=== PATIENT | female | born 1995 | race Caucasian/White ===

== ENCOUNTER 2021-04-06 07:03 | Outpatient (REF) | payer OTHER, SELFPAY ==
[2021-04-06 07:16] LABS: MANUAL DIFF FLAG NO
[2021-04-06 07:41] LABS: Basophils Percent Auto 0.2 % (0-2); Eosinophils Absolute Auto 0.2 X10*3/uL (0.0-0.4); Eosinophils Percent Auto 1.8 % (0-4); Hematocrit 43.7 % (37.0-47.0); Hemoglobin 14.9 g/dl (12.0-16.0); Imm Gran Abs Auto 0.03 X10*3/uL (0.00-0.03); Imm Gran Pct Auto 0.4 % (0.0-0.4); Lymphocytes Absolute Auto 3.3 X10*3/uL (1.2-4.9); Lymphocytes Percent Auto 38.9 % (20-40); Mean Corpuscular HGB Conc 34.1 g/dl (31.0-35.0); Mean Corpuscular Hemoglobin 30.5 pg (27.0-33.0); Mean Corpuscular Volume 89.5 fL (80.0-98.0); Mean Platelet Volume 10.8 fL (9.4-12.3); Monocytes Absolute Auto 0.5 X10*3/uL (0.1-1.2); Monocytes Percent Auto 6.3 % (2-11); Neutrophils Absolute Auto 4.4 x10*3/uL (2.0-8.3); Neutrophils Percent Auto 52.4 % (45-73); Platelet Count 275 X10*3/uL (160-400); Red Blood Count 4.88 X10*6/uL (4.20-5.50); Red Cell Distribution Width 12.2 % (11.0-16.0); White Blood Count 8.5 X10*3/uL (4.8-10.8)
[2021-04-06 08:02] LABS: Alanine Aminotransferase 15 U/L (0-31); Albumin Level 4.5 g/dL (3.5-5.0); Alkaline Phosphatase 48 U/L (39-117); Anion Gap 12 (12-20); Aspartate Amino Transferase 18 U/L (5-31); Bilirubin Total 0.5 mg/dL (0.0-1.0); Blood Urea Nitrogen 9 mg/dL (9-16); Calcium 9.4 mg/dL (8.4-10.2); Carbon Dioxide 24 mmol/L (22-29); Chloride 106 mmol/L (96-108); Estimated Glomerular Filt Rate > 60; Glucose Fasting 92 mg/dL (60-99); Potassium 4.3 mmol/L (3.3-5.1); Sodium 138 mmol/L (135-145); Total Protein 7.4 g/dL (6.5-8.0)
[2021-04-06 08:25] LABS: TSH reflex Free T4 1.54 uIU/mL (0.32-4.0)
== END 2021-04-06 07:04 | disposition home or self-care (01) ==
LOC: HO.LAB 07:03
PROVIDERS: PCP Physician Assistant; Visit Provider Physician Assistant
DX: Z13.29 Encounter for screening for other suspected endocrine disorder (principal)
CPT/HCPCS: 36415; 80053; 84443; 85025

== ENCOUNTER 2021-05-28 08:17 | Outpatient (REF) | payer OTHER, SELFPAY ==
[2021-05-29 05:26] LABS: CT PCR NOT DETECTED (Not Detect.); NG PCR NOT DETECTED (Not Detect.)
== END 2021-05-28 08:18 | disposition home or self-care (01) ==
LOC: HO.LAB 08:17
PROVIDERS: PCP Physician Assistant; Visit Provider Advanced Practice Midwife
DX: Z01.419 Encounter for gynecological examination (general) (routine) without abnormal findings (principal); Z11.3 Encounter for screening for infections with a predominantly sexual mode of transmission; Z11.8 Encounter for screening for other infectious and parasitic diseases; Z80.3 Family history of malignant neoplasm of breast; Z80.42 Family history of malignant neoplasm of prostate
CPT/HCPCS: 87491; 87591

== ENCOUNTER 2022-05-12 11:17 | Outpatient (REF) | payer BC, SELFPAY ==
[2022-05-12 11:43] LABS: Hematocrit 42.8 % (37.0-47.0); Hemoglobin 14.6 g/dl (12.0-16.0); Mean Corpuscular HGB Conc 34.1 g/dl (31.0-35.0); Mean Corpuscular Hemoglobin 30.4 pg (27.0-33.0); Mean Platelet Volume 9.7 fL (9.4-12.3); Platelet Count 394 X10*3/uL (160-400); Red Blood Count 4.81 X10*6/uL (4.20-5.50); Red Cell Distribution Width 11.6 % (11.0-16.0); White Blood Count 13.2 X10*3/uL (4.8-10.8)
[2022-05-12 12:25] LABS: Alanine Aminotransferase 16 U/L (0-31); Albumin Level 4.8 g/dL (3.5-5.0); Alkaline Phosphatase 72 U/L (39-117); Anion Gap 14 (12-20); Aspartate Amino Transferase 20 U/L (5-31); Bilirubin Total 0.5 mg/dL (0.0-1.0); Blood Urea Nitrogen 11 mg/dL (9-16); Calcium 9.7 mg/dL (8.4-10.2); Carbon Dioxide 23 mmol/L (22-29); Chloride 105 mmol/L (96-108); Estimated Glomerular Filt Rate > 60; Glucose Fasting 104 mg/dL (60-99); Potassium 3.8 mmol/L (3.3-5.1); Sodium 138 mmol/L (135-145); TSH reflex Free T4 1.34 uIU/mL (0.32-4.0); Total Protein 7.8 g/dL (6.5-8.0)
== END 2022-05-12 11:18 | disposition home or self-care (01) ==
LOC: HO.XRAY 11:17
PROVIDERS: PCP Physician Assistant; Visit Provider Physician Assistant
DX: Z13.29 Encounter for screening for other suspected endocrine disorder (principal); J40 Bronchitis, not specified as acute or chronic
CPT/HCPCS: 36415; 71046; 80053; 84443; 85027

== ENCOUNTER 2022-05-20 07:55 | Outpatient (REF) | payer BC, SELFPAY ==
[2022-05-20 08:11] LABS: Hemoglobin 14.2 g/dl (12.0-16.0); Mean Corpuscular HGB Conc 33.8 g/dl (31.0-35.0); Mean Corpuscular Hemoglobin 30.3 pg (27.0-33.0); Mean Corpuscular Volume 89.6 fL (80.0-98.0); Mean Platelet Volume 9.4 fL (9.4-12.3); Platelet Count 348 X10*3/uL (160-400); Red Blood Count 4.69 X10*6/uL (4.20-5.50); White Blood Count 10.5 X10*3/uL (4.8-10.8)
== END 2022-05-20 07:56 | disposition home or self-care (01) ==
LOC: HO.LAB 07:55
PROVIDERS: PCP Physician Assistant; Visit Provider Physician Assistant
DX: D72.829 Elevated white blood cell count, unspecified (principal)
CPT/HCPCS: 36415; 85027

== ENCOUNTER 2022-06-02 08:40 | Outpatient (REF) | payer BC, SELFPAY ==
[2022-06-02 16:43] LABS: CT PCR NOT DETECTED (Not Detect.); NG PCR NOT DETECTED (Not Detect.)
== END 2022-06-02 08:41 | disposition home or self-care (01) ==
LOC: HO.LNP 08:40
PROVIDERS: PCP Physician Assistant; Visit Provider Advanced Practice Midwife
DX: Z01.419 Encounter for gynecological examination (general) (routine) without abnormal findings (principal); Z11.3 Encounter for screening for infections with a predominantly sexual mode of transmission
CPT/HCPCS: 0353U; 88142

== ENCOUNTER 2023-04-10 11:23 | Outpatient (AMB) | payer BC, SELFPAY ==
[2023-04-10 11:25] VITALS: BP 110/66; BMI 24.6
--- NOTE | 2023-04-10 11:25 | MHC.OFFVIS ---
Intake Vital Signs 04/10/23 11:25 Height 5 ft 2 in Weight 134 lb 7.712 oz BMI 24.6 BP 110/66 Intake Visit Reasons: consult Intake Note: The patient agreed to use of a medical technologist generalist during this encounter. Scribed for ESTHER Chino by Courtney Worthington medical technologist generalist, on 04/10/2023 at 11:40 am EST Mercerizing Range Feeder Required: No Information Interpreted: non-clinical & clinical Accompanied by: Self / Same As Patient Allergies No Known Allergies [No Known Allergies*] Allergy (Verified 04/10/23 11:25) Is last menstrual period known: Yes Last menstrual period: 02/08/23 Patient : Yes HPI HPI Comments History of Present Illness Details She presents for missed menses. G 1, LMP 02/08/23, EDC ~11/17/23. Her menses are typically regular and monthly. Took home HCG test, positive. This is her first and she is happy about it. She recently got this year. Reports a couple episodes of nausea. Admits to bleeding after intimacy, resolved. Family hx of DM. PFSH Surgical History History of appendectomy Family History Father Prostate cancer Mother No problems noted. 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 Sexual orientation: Straight/Heterosexual Gender identity: Female Cognitive needs: No Hearing needs: No Vision needs: No Female Reproductive History Menstrual Date of last menstrual period: 02/08/23 Review of Systems Const All systems reviewed & are unremarkable except as noted in HPI and below Reports abnormal menses Physical Exam Vital Signs: Last Vital Signs BP 110/66 04/10/23 11:25 BMI result Body Mass Index 24.6 Const General: cooperative, healthy appearing, no acute distress, well developed and alert External Female Exam: normal external appearance Speculum Exam - Vagina: normal appearance of the vagina Speculum Exam - Cervix: normal appearance of the cervix Bimanual exam- vagina & uterus: normal bimanual exam, uterine shape normal, non-tender and enlarged (8 wks) Bimanual Exam- Adnexa, other: normal adnexae and no masses Results AMB Test Urine AMB Test Urine Positive Last Edit by Susie Joy CMA on 04/10/23 11:58 Results Reviewed Results Reviewed: Laboratory Last Values Tst Clinic Positive 04/10/23 11:57 Assessment & Plan Assessment & Plan (1) Missed menses: Code(s): N92.6 - Irregular menstruation, unspecified Plan: Urine HCG today, positive. Discussed EDC pending OB US. US ordered today.? Stay well hydrated and eat small frequent meals. Also encouraged light exercise to stay active. Reviewed ectopic warnings and when to call for further evaluation. Contact office with any VB or concerns. Next appointment TBD pending US. (2) Bleeding in early : Code(s): O20.9 - Hemorrhage in early , unspecified Plan: Counseled on bleeding in . Contact office with any concerns. Orders: Orders US OB limited Today O26.859 - Spotting complicating , unspecified trimester, Z34.90 - Encounter for supervision of normal , unspecified, unspecified trimester CT NG by PCR Today Z34.90 - Encounter for supervision of normal , unspecified, unspecified trimester Bacterial Vaginosis Panel Today Z34.90 - Encounter for supervision of normal , unspecified, unspecified trimester Coding Level of Care Code Est Pt Level 3 (66290) Diagnoses Missed menses N92.6 Bleeding in early O20.9
== END 2023-04-10 11:54 | disposition home or self-care (01) ==
PROVIDERS: PCP Physician Assistant; Visit Provider Advanced Practice Midwife
DX: N92.6 Irregular menstruation, unspecified (principal); O20.9 Hemorrhage in early pregnancy, unspecified; Z32.01 Encounter for pregnancy test, result positive
CPT/HCPCS: 99213

== ENCOUNTER 2023-04-10 11:23 | Outpatient (REF) | payer BC, SELFPAY ==
[2023-04-10 16:22] LABS: CT PCR NOT DETECTED (Not Detect.); NG PCR NOT DETECTED (Not Detect.)
[2023-04-11 13:29] LABS: BV Int Neg Control Negative (Negative); BV Int Pos Control Positive (Positive)
== END 2023-04-10 11:24 | disposition home or self-care (01) ==
LOC: HO.LNP 11:23
PROVIDERS: PCP Physician Assistant; Visit Provider Advanced Practice Midwife
DX: O20.9 Hemorrhage in early pregnancy, unspecified (principal); Z20.2 Contact with and (suspected) exposure to infections with a predominantly sexual mode of transmission; Z3A.00 Weeks of gestation of pregnancy not specified
CPT/HCPCS: 0353U; 81025; 87480; 87510; 87660

== ENCOUNTER 2023-04-24 12:20 | Outpatient (REF) | payer BC, SELFPAY ==
--- NOTE | ~2023-04-24 | US_ITS ---
EXAMINATION: US , LIMITED CLINICAL INFORMATION: Encounter for supervision of normal LMP 02/08/2023. GA by LMP 10 weeks 5 days and ALIDA of 11/15/2023. COMPARISON: None available. TECHNIQUE: Routine transabdominal imaging of pelvis is performed. FINDINGS: On transabdominal ultrasound is anterior uterine distal sac and a pole. The crown-rump length measures 4.24 seen corresponding to 11 weeks and 1 day and ALIDA of 11/12/2023. There is visualization of pole, gestational sac and motion. Yolk sac is not seen. heart rate is 161 bpm. Right ovary is not seen. The left ovary measures 2.90 x 2.13 x 2.09 cm. US/US OB limited IMPRESSION: Single live intrauterine fetus with an ultrasound gestational age of 11 weeks and 1 day and ALIDA of 11/12/2023. heart rate is 161 beats. There is motion visualized.
== END 2023-04-24 12:21 | disposition home or self-care (01) ==
LOC: HO.HMGCX 12:20
PROVIDERS: PCP Physician Assistant; Visit Provider Advanced Practice Midwife
DX: O26.851 Spotting complicating pregnancy, first trimester (principal); Z3A.11 11 weeks gestation of pregnancy
CPT/HCPCS: 76815

== ENCOUNTER 2023-04-30 09:52 | Outpatient (AMB) | payer BC, SELFPAY ==
[2023-04-30 09:59] VITALS: BMI 23.8
--- NOTE | 2023-04-30 09:59 | A.OFFVISPN_ITS ---
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 Paternal Grandfather Prostate cancer Maternal Grandmother Breast cancer Alzheimer disease Diabetes HTN (hypertension) Social History (Updated 04/30/23 @ 10:14 by Gisella Arciniega) Household Members: Spouse Both parents involved: Yes Caregiver staying overnight: No Housing: House Are you a primary day care home provider to a significant other at home: No Do you presently have visiting nurse or other home services: No 75 years or older and lives alone: No Alcohol intake: former Comment: stopped with dx of Patient Tobacco Use Status: Never used Tobacco e-Cigarette/Vaping Use: Never Used Second Hand Smoke Exposure: No Substance Use Type: Marijuana Agree to transfusion: Yes service: No Current occupational status: employed 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 Current occupational exposures/hazards: No Sexual orientation: Straight/Heterosexual Gender identity: Female Cognitive needs: No Hearing needs: No Vision needs: No Female Reproductive History Menstrual Age of Menarche: 10 Duration of menses: 3-5 days Date of last menstrual period: 02/08/23 control method: none Total pregnancies: 1 Full term: 0 Premature: 0 Number of Living Children: 0 Ab induced: 0 Ab spontaneous: 0 Ectopics: 0 Multiple births: 0 History of abnormal pap smear: No History of STI: No History History 1 Elective abortions 0 Para 0 Spontaneous abortions 0 Hx # Term Pregnancies 0 Ectopic pregnancies 0 Hx # Pregnancies 0 Multiple births 0 History Other: First Education First Trimester Education Checklist Plans/Education - by Trimester Counseled: Yes HIV and other routine tests: discussed Infectious disease exposure: chicken pox immunity discussed and hepatitis risk discussed Influenza vaccine: discussed Nutrition and weight gain counseling: special diet: discussed Sexual activity: discussed Exercise: discussed Tobacco use: No Alcohol use: No Substance use: No Environmental/home/work hazards: discussed Domestic violence: discussed Travel: discussed Seatbelt use: discussed Toxoplasmosis precautions (cats/raw meat): discussed Risk factors identified by history: discussed danger signs: Yes education packet: vitamins and iron, diet and weight gain, fish and mercury intake, listeriosis prevention, caffeine use, exercise and activity, sexual activity, x-ray exposure, toxoplasmosis precautions, sauna/hot tub use and dental care Mental health: discussed Health center information: coverage 24 hours a day Questionnaire History History : 1 Visit ALIDA Calculator Estimated Delivery Date Method Current WG Current Estimate 11/12/23 Ultrasound #1 12w 0d Other Estimates 11/15/23 LMP (Certain) 11w 4d Expected Delivery Route/Plan Specific Issues/Plans Maternal grandmother with Diabetes-- early glucose ordered OB Visit Log Initial Weight: 135 lb Date -?-?-?-?-?-?-?-?-?-?-?-?- EGA Weight Gest Week Fundal Ht Present FHR move Efface % Edema BP PrePreg We Weight GTT -?-?-?-?-?-?-?-?-?-?-?-?- Glucose LV Protein Blood Type 04/30/23 -?-?--?-?-?-?-?-?-?-?-?-?- 12w 0d 130 lb 4 oz (-4 lb 12 oz) 130 130 lb 4 oz -?-?-?-?-?-?-?-?-?-?-?-?- Notes Visit Date: 04/30/23 Last Updated by: Gisella Maurertarik Wlof is here for nurse intake visit. She is a pleasant, 28 yo with LMP 02/08/23 ALIDA 11/17/23. US on 04/24/23 at 11w1d gives ALIDA of 11/12/23 and GA today of 12w0d. She and her are very excited about this planned . She is well supported by her and family. Pt is aware that all ultrasounds and delivery will be at [facility] [place]. She is scheduled for NT US on 05/08/23. Maryann states that she is feeling well. She had some slight nausea earlier and some vaginal bleeding but all has resolved. She does report she has anxiety without depression and has a therapist she sees for 1 year. She takes no medications and denies any family hx of preeclampsia. She does report her maternal grandmother has diabetes. An early glucose screen has been ordered. She was Covid+ shortly after her LMP. She has been vaccinated x2 and received 1 booster. She would like a flu shot. Pt was given the folder. We discussed danger signs and that she should call the office if she has vaginal bleeding and/or pelvic pain. She was also advised there is an finance and administration manager MD available 15/12 for urgent issues and she was advised how to reach the MD after office hours. In the event that she has an urgent issue and cannot reach the finance and administration manager MD, she should go directly to [facility] for evaluation. We reviewed first trimester education and pt verbalized understanding and agrees with plan. labs were ordered and pt will have them done today. FHT were auscultated at 130 bpm. Pt was very happy to hear FHT as this is the first time she has heard this and she made a recording for her . Initial Infection History & Risk Profile History of STDs: No HIV risk evaluation: low risk Hepatitis B risk evaluation: low risk Patient or partner has history of Genital Herpes: No Varicella/chicken pox status: unknown Genetic Screening & Laborer Steel Handling Genetic Screening/Teratology Counseling - Includes patient, baby's father, or anyone in either family with: 1. Patient's age 35 years or older as of estimated date of delivery: No 2. Thalassemia (Jordanian, Sri Lankan, Mediterranean, or Background); MCV less than 80: No 3. Neural Tube Defect (Meningomyelocele, Spina Bifida, or Anencephaly): No 4. Congenital Heart Defect: No 5. Down Syndrome: No 6. Derek-Sachs (Ashkenazi Moravian, Cajun, Albanian Turkish): Yes 7. Alexey Disease (Ashkenazi Moravian): No 8. Familial Dysautonomia (Ashkenazi Moravian): No 9. Sickle Cell Disease or Trait (): No 10. Hemophilia or other blood disorders: No 11. Muscular Dystrophy: No 12. Cystic Fibrosis: No 13. Mark's Chorea: No 14. Intellectual disability/Autism: Yes 15. Other inherited genetic or chromosomal disorder: No 16. Maternal Metabolic Disorder (EG,TYPE 1 Diabetes, PKU): No 17. Patient or baby's father had a child with defects not listed above: No 18. Recurrent loss or a stillbirth: No 19. Medications (including supplements, vitamins, herbs or otc drugs)/illicit/recreational drugs/alcohol since last menstrual period: No 20. Any other: No Infection History 1. Live with someone with TB or exposed to TB: No 2. Rash or viral illness since last menstrual period: Yes 3. Hepatitis B,C: No Other (see comments) Comments: Pt tested Covid + after LMP Source: [employer] Coding Level of Care Code Established Pt [place] Patient Type Established History Problem Focused Medical Decision Making Low Complexity Diagnoses Supervision of normal intrauterine in primigravida Z34.00 Time Spent (min) 65 Assessment & Plan Assessment & Plan (1) Supervision of normal intrauterine in primigravida: Code(s): Z34.00 - Encounter for supervision of normal first , unspecified tri mester Category: Medical Orders: Orders Complete Blood Count no Diff Today Z32. - Encounter for test, result positive HIV Ab/Ag Today Z32. - Encounter for test, result positive Rubella IgG Antibody Today Z32. - Encounter for test, result positive CF Carrier Screen Today Z32. - Encounter for test, result positive Syphilis Screen Today Z32. - Encounter for test, result positive Hepatitis B Surface Antigen Today Z32. - Encounter for test, result positive Varicella IgG Antibody Today Z32. - Encounter for test, result positive Hepatitis C Antibody Today Z32. - Encounter for test, result positive Urine Culture Today Z32. - Encounter for test, result positive Drug Screen Urine Today Z32. - Encounter for test, result positive Screen Today Z32. - Encounter for test, result positive Glucose 1 Hour PP 50gm Dose Today Z32. - Encounter for test, result positive, Z34.00 - Encounter for supervision of normal first , unspecified trimester, Z83.3 - Family history of diabetes mellitus
== END 2023-04-30 11:29 | disposition home or self-care (01) ==
PROVIDERS: PCP Physician Assistant; Visit Provider Advanced Practice Midwife
DX: Z34.00 Encounter for supervision of normal first pregnancy, unspecified trimester (principal)
CPT/HCPCS: 25942

== ENCOUNTER → 2023-04-30 09:52 | Outpatient (BNVA) | payer BC, SELFPAY | PROVIDERS: PCP Physician Assistant; Visit Provider Advanced Practice Midwife | DX: Z34.01 Encounter for supervision of normal first pregnancy, first trimester (principal) | CPT/HCPCS: 99212 ==

== ENCOUNTER 2023-05-05 07:32 | Outpatient (REF) | payer OTHER, SELFPAY ==
[2023-05-05 09:33] LABS: Glucose 1 Hour PP 50gm Dose 99 mg/dL (60-140)
[2023-05-05 09:51] LABS: Syphilis Screen Nonreactive (Nonreactive)
[2023-05-05 09:52] LABS: HBsAGNum1 0.33 S/CO (0.00-0.99); HIV AB/AG Nonreactive (Nonreactive); HIV Num 1 0.05 S/CO (0.00-0.99); Hepatitis B Surface Antigen Negative (Negative); ~HepC Num1 0.09 S/CO (0.00-0.79); ~Hepatitis C Antibody Nonreactive (Nonreactive)
[2023-05-05 16:53] LABS: Amphetamine Screen Urine Not Detected (Not Detect); Barbiturates, Urine Not Detected (Not Detect); Benzodiazepines Screen Urine Not Detected (Not Detect); Cannabinoid Screen Urine Not Detected (Not Detect); Cocaine Screen Urine Not Detected (Not Detect); Fentanyl, urine Not Detected (Not Detect); Opiate Screen Urine Not Detected (Not Detect); Phencyclidine Screen Urine Not Detected (Not Detect)
[2023-05-06 05:29] LABS: CT PCR NOT DETECTED (Not Detect.); NG PCR NOT DETECTED (Not Detect.)
[2023-05-06 12:21] LABS: BV Int Neg Control Negative (Negative); BV Int Pos Control Positive (Positive)
[2023-05-06 16:02] LABS: Rubella IgG Antibody 2.14 Index
[2023-05-15 15:58] LABS: CF Ethnicity NG; Cystic Fibrosis NEGATIVE (NEGATIVE)
== END 2023-05-05 07:33 | disposition home or self-care (01) ==
LOC: HO.LAB 07:32
PROVIDERS: Advanced Practice Midwife; PCP Physician Assistant; Visit Provider Advanced Practice Midwife
DX: Z34.91 Encounter for supervision of normal pregnancy, unspecified, first trimester (principal); Z3A.12 12 weeks gestation of pregnancy; Z20.2 Contact with and (suspected) exposure to infections with a predominantly sexual mode of transmission; Z79.899 Other long term (current) drug therapy; Z83.3 Family history of diabetes mellitus
CPT/HCPCS: 0353U; 80307; 81220; 82950; 86762; 86780; 86787; 86803; 86850; 86900; 87086; 87340; 87389; 87480; 87510; 87660; 99212

== ENCOUNTER 2023-05-05 09:14 | Outpatient (AMB) | payer OTHER, SELFPAY ==
[2023-05-05 09:23] VITALS: BP 110/68; BMI 24.0
--- NOTE | 2023-05-05 09:23 | A.OFFVISPN_ITS ---
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 Paternal Grandfather Prostate cancer Maternal Grandmother Breast cancer Alzheimer disease Diabetes HTN (hypertension) Social History Household Members: Spouse Both parents involved: Yes Caregiver staying overnight: No Housing: House Are you a primary resident care provider to a significant other at home: No Do you presently have visiting nurse or other home services: No 75 years or older and lives alone: No Alcohol intake: former Comment: stopped with dx of Patient Tobacco Use Status: Never used Tobacco e-Cigarette/Vaping Use: Never Used Second Hand Smoke Exposure: No Substance Use Type: Marijuana Agree to transfusion: Yes service: No Current occupational status: employed 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 Current occupational exposures/hazards: No Sexual orientation: Straight/Heterosexual Gender identity: Female Cognitive needs: No Hearing needs: No Vision needs: No Female Reproductive History Menstrual Age of Menarche: 10 Duration of menses: 3-5 days control method: none Total pregnancies: 1 Date of last pap smear: 06/02/22 History History 1 Elective abortions 0 Para 0 Spontaneous abortions 0 Hx # Term Pregnancies 0 Ectopic pregnancies 0 Hx # Pregnancies 0 Multiple births 0 Questionnaire History History : 1 Visit ALIDA Calculator Estimated Delivery Date Method Current WG Current Estimate 11/15/23 LMP (Certain) 12w 2d Other Estimates 11/12/23 Ultrasound #1 12w 5d Expected Delivery Route/Plan Specific Issues/Plans Maternal grandmother with Diabetes-- early glucose ordered OB Problem List: 28yr. old ? ? G1 ?P 0? ? ?LMP: 9/17/23 EDC:11/15/23 ?by LMP ? ? ?Blood type: pending Problem List: 1. Testing: Panorama/and or First Tri screen: ? ?risk NT scan: AFP: FAS: Glucose: early ? 28 wk glucose: ? CBC 1st Tri: ? 28 wk. CBC: GBS: Vaccinations: Flu: Covid: actually had COVID in first trimester..... RSV: Tdap: Education/Services WIC: CBE: Breast feeding classes: Social Supports/Stressors: Living situation: Supports: Work/school: Transportation: Labor, and Concerns: Labor support: Plan: Feeding Plans: control: OB Visit Log Initial Weight: 135 lb Date -?-?-?-?-?-?-?-?-?-?-?-?- EGA Weight Gest Week Fundal Ht Present FHR move Efface % Edema BP PrePreg We Weight GTT -?-?-?-?-?-?-?-?-?-?-?-?- Glucose LV Protein Blood Type 04/30/23 -?-?-?-?-?-?-?-?-?-?-?-?- 11w 4d 130 lb 4 oz (-4 lb 12 oz) 130 130 lb 4 oz -?-?-?-?-?-?-?-?-?-?-?-?- 05/05/23 -?-?-?-?-?-?-?-?-?-?-?-?- 12w 2d 131 lb (-4 lb) 12 140 110/68 131 lb -?-?-?-?-?-?-?-?-?-?-?-?- Notes Visit Date: 05/05/23 Last Updated by: Audelia Fuentes CNM Patient is here for her new OB physical visit she had a sure LMP of 02/08/2023. She was trying to get she got on January 23. They are very very happy about the . The ultrasound at 11 weeks confirmed her ALIDA within 3 days we will stick with the LMP ALIDA. She was nauseous twice when she needed to eat and it went away she is doing very well and feels well the spotting she had at the very beginning did not last long at all. She got her blood work done this morning and she is going to do the clean- catch urine before the physical exam now. Reviewed self-care in the diet exercise work. 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 Reviewed for any emergency she would go to [facility] she has her nuchal translucency appointment at [facility] on Thursday and so she is going to check out where she would go for emergencies when she is there. Reviewed that she will be getting blood work for genetic screens after the ultrasound. She is on the portal so she can get results but we will call her for anything abnormal. Reviewed that we will not be delivering her, and if she wanted to meet the team that would be involved in her delivery transfer of care would be necessary. For now she is content to come here. Reviewed what to expect with care and upcoming testing, including AFP testing at 16-18 weeks at the next visit if she so chose. Reviewed that the anatomy scan OB at 18-20 weeks. Initial discussion/teaching about and latch initiated. She feels fine after having her 2nd bout of COVID. She did not take any antivirals. RTC 4 weeks. Visit Date: 04/30/23 Last Updated by: Gisella Peña Demian Wolf is here for nurse intake visit. She is a pleasant, 28 yo with LMP 02/08/23 ALIDA 11/17/23. US on 04/24/23 at 11w1d gives ALIDA of 11/12/23 and GA today of 12w0d. She and her are very excited about this planned . She is well supported by her and family. Pt is aware that all ultrasounds and delivery will be at [facility]. She is scheduled for NT US on 05/08/23. Maryann states that she is feeling well. She had some slight nausea earlier and some vaginal bleeding but all has resolved. She does report she has anxiety without depression and has a therapist she sees for 1 year. She takes no medications and denies any family hx of preeclampsia. She does report her maternal grandmother has diabetes. An early glucose screen has been ordered. She was Covid+ shortly after her LMP. She has been vaccinated x2 and received 1 booster. She would like a flu shot. Pt was given the folder. We discussed danger signs and that she should call the office if she has vaginal bleeding and/or pelvic pain. She was also advised there is an equipment validation specialist MD available 15/12 for urgent issues and she was advised how to reach the MD after office hours. In the event that she has an urgent issue and cannot reach the equipment validation specialist MD, she should go directly to [facility] for evaluation. We reviewed first trimester education and pt verbalized understanding and agrees with plan. labs were ordered and pt will have them done today. FHT were auscultated at 130 bpm. Pt was very happy to hear FHT as this is the first time she has heard this and she made a recording for her . Exam Const Constitutional General: cooperative, healthy appearing, comfortable, no acute distress and well developed Nutritional Appearance: average body habitus and well nourished Constitutional Limitations: no limitations HENMT Head: normocephalic and other Teeth and gingiva: dentition normal and gingiva normal Neck Thyroid: Thyroid normal Chest Breast/axilla inspection: normal inspection of the breasts and Other (nipples daniel well) Breast/axilla palpation: normal palpation of the breasts and normal palpation of the axillae Resp Effort & Inspection: normal respiratory effort Auscultation: clear to auscultation bilaterally Cardio Heart sounds: S1 normal heart sound present and S2 normal heart sound present GI Inspection (GI): normal to inspection General Exam: Yes no CVA tenderness External Female Exam: normal external appearance Speculum exam - vagina: normal appearance of the vagina, normal discharge and other (normal appearance to vaginal secretions) Speculum Exam - Cervix: normal appearance of the cervix Bimanual exam- vagina & uterus: normal bimanual exam, uterine size normal (consistant w dating), consistency normal (consitent w gestational age), uterine mobility normal and uterine shape normal (c/w gestational age) Bimanual Exam- Adnexa, other: normal adnexae, no masses and normal (teaching re kegels done) Pelvic Support: normal (teaching re kegels done) OB/external & speculum: external exam normal Manual OB Exam: other (cervix =long/thick/closed/ and consistent w obstetric history) Coding Level of Care Code [place] Diagnoses Supervision of normal intrauterine in primigravida Z34.00 Family history of diabetes mellitus (DM) Z83.3 Assessment & Plan Assessment & Plan (1) Supervision of normal intrauterine in primigravida: Code(s): Z34.00 - Encounter for supervision of normal first , unspecified trimester Category: Medical (2) Family history of diabetes mellitus (DM): Code(s): Z83.3 - Family history of diabetes mellitus Category: Medical Orders: Orders CT NG by PCR Today Z01.419 - Encounter for gynecological examination (general) (routine) without abnormal findings Bacterial Vaginosis Panel Today Z20.2 - Contact with and (suspected) exposure to infections with a predominantly sexual mode of transmission Urine Culture Today Z34.00 - Encounter for supervision of normal first , unspecified trimester
== END 2023-05-05 10:26 | disposition home or self-care (01) ==
PROVIDERS: PCP Physician Assistant; Visit Provider Advanced Practice Midwife
DX: Z34.00 Encounter for supervision of normal first pregnancy, unspecified trimester (principal); Z83.3 Family history of diabetes mellitus
CPT/HCPCS: 25942; 99213

== ENCOUNTER 2023-06-08 08:48 | Outpatient (AMB) | payer OTHER, SELFPAY ==
--- OUTSIDE RECORDS SUMMARY | 2023-06-08 08:50 | XMS_ITS | Continuity of Care Document ---
Author Name Unknown Organization [facility] Address [address] [place] [id number]- Care Team Providers Care Saute Chef Name Role Phone Dagoberto TAYLOR, Rea Primary Care Physician Encounter [facility] Date(s): 05/04/23 - 06/03/23 [facility] [address] [place] [id number] [[email or web address]] Allergies, Adverse Reactions, Alerts No Known Allergies Immunizations Given and Recorded Vaccine Date Status Refusal Reason influenza virus vaccine, inactivated 05/13/23 Give n influenza virus vaccine, inactivated 05/12/22 Saturnino rded influenza virus vaccine, inactivated 05/01/09 Saturnino rded SARS-CoV-2 (COVID-19) mRNA-1273 vaccine 04/11/21 R ecorded SARS-CoV-2 (COVID-19) mRNA-1273 vaccine 09/03/20 R ecorded SARS-CoV-2 (COVID-19) mRNA-1273 vaccine 08/06/20 R ecorded Human Papillomavirus Vaccine 12/29/18 Recorded Human Papillomavirus Vaccine 08/18/18 Recorded Human Papillomavirus Vaccine 06/16/18 Recorded tetanus/diphtheria/pertussis, acel(Tdap) 05/04/17 Recorded tetanus/diphtheria/pertussis, acel(Tdap) 11/28/10 Recorded Hepatitis A Adult Vaccine 07/25/11 Recorded Hepatitis A Adult Vaccine 11/28/10 Recorded Varicella Virus Vaccine 11/28/10 Recorded Varicella Virus Vaccine 03/25/06 Recorded tetanus-diphtheria toxoids (Td) 03/28/05 Recorded Measles/Mumps/Rubella Virus Vaccine 03/26/98 Recor ded Measles/Mumps/Rubella Virus Vaccine 05/07/95 Recor ded diphtheria/tetanus/pertussis, acel(DTaP) 03/26/98 Recorded diphtheria/tetanus/pertussis, acel(DTaP) 08/04/95 Recorded diphtheria/tetanus/pertussis, acel(DTaP) 94 Recorded diphtheria/tetanus/pertussis, acel(DTaP) 94 Recorded diphtheria/tetanus/pertussis, acel(DTaP) 94 Recorded haemophilus b conjugate (PRP-OMP)vaccine 08/04/95 Recorded haemophilus b conjugate (PRP-OMP)vaccine 94 Recorded haemophilus b conjugate (PRP-OMP)vaccine 94 Recorded haemophilus b conjugate (PRP-OMP)vaccine 94 Recorded hepatitis B pediatric vaccine 94 Recorded hepatitis B pediatric vaccine 94 Recorded hepatitis B pediatric vaccine 94 Recorded Medications 1 0 Refills, Maintenance, 05/13/23 10:28:00 EST, Partial fill upon patient request if the prescription is for a schedule II opioid drug. Start Date: 05/13/23 Status: Ordered Problem List Condition Confirmation Course Effective Dates Status Health [facility] Informant Adjustment disorder with anxiety Confirmed Active Social History Social History Type Response Smoking Status Never (less than 100 in lifetime) entered on: 05/13/23 Sex Patient Care team information Care Team Personnel Name: Rea Arenas MD Position: [facility]AY[facility] Physician - Primary Care Member Role: PCP Address: Address: [address] [place] [address] Adult [place] [address]- Care Team Related Persons Name: JÚNIOR FIGUEROA Address: home [address] [place] [id number]
--- OUTSIDE RECORDS SUMMARY | 2023-06-08 08:50 | XMS_ITS | Continuity of Care Document ---
Author Name Unknown Organization [facility] Address [address] [place] [address]- Care Team Providers Care Scientific Linguist Name Role Phone Rea Arenas MD Primary Care Physician Encounter [facility] Date(s): 05/13/23 - 05/20/23 [facility] [address] [place], [place] [address] Encounter Diagnosis Adjustment disorder with anxiety(Discharge Diagnosis) - 05/13/23 Annual physical exam(Discharge Diagnosis) - 05/13/23 Attending Physician: Rea Arenas MD Allergies, Adverse Reactions, Alerts No Known Allergies [...] Informant Adjustment disorder with anxiety Confirmed Active Diagnosis Diagnosis Type Effective Dates Health Status Clinical Service Informant Adjustment disorder with anxiety Discharge Diagnosis 05/13/23 Annual physical exam Discharge Diagnosis 05/13/23 Procedures Procedure Date Related Diagnosis Body Site Status Appendectomy Completed Vital Signs Most recent to oldest [Reference Range]: 1 Height 156 cm (05/13/23 10:00 AM) Weight 59.6 kg (05/13/23 10:00 AM) Oxygen Saturation [94-100 %] 99 % (05/13/23 10:00 AM) Pulse Rate [55-90 bpm] 102 bpm *H* (05/13/23 10:00 AM) Body Mass Index [18.5-24.99 kg/m2] 24.49 kg/m2 (05/13/23 10:00 AM) Blood Pressure [90-138/55-84 mm Hg] 112/ 62mm Hg (05/13/23 10:00 AM) Blood pressure sites Arm, left (05/13/23 10:00 AM) Weight Obtained Via Standing scale (05/13/23 10:00 AM) Social History Social History Type Response Smoking Status Never (less than 100 in lifetime) entered on: 05/13/23 Sex Note * Chichi Pham: PERFORM, SIGN, VERIFY Event Display: Patient Education/Instruction Authored Date: [id number] [facility] *No [facility] Clinical Summary Name ESPERANZA GOFF Age 28 Years 1995 PCP Rea Arenas MD [id number] Visit Date 05/13/2023 09:44:00 Additional Instructions: Scheduled Appointments?? Future Appointments ?No Future Appointments Scheduled Follow-Up Instructions ?? Diagnosis Adjustment disorder with anxiety; Encounter for general adult medical examination without abnormal findings Medications: Please continue your medications until treatment is completed or stopped by your provider. Discuss any questions related to medications with your provider. Medications to Continue with No Changes These medications were not printed or sent to your pharmacy Multivitamin, ( 1) Next Dose: Allergy Info:?? NKA Medications Given This Visit Medication Dose Route influenza virus vaccine, inactivated (influenza virus, inactivated vacc) 0.5 mL Intramuscular Future Orders ?No future orders Vital Signs Height 156 cm Weight 59.6 kg BMI 24.49 kg/m2 Blood Pressure 112 mm Hg/62 mm Hg Temperature Pulse Rate 102 bpm Respiratory Rate 02 Sat Mode of Delivery 99 %/ You can now view a summary of your hospital visit from the comfort of your home through a free online portal called [facility]. [facility] is a website that allows you to securely view your medical information including discharge summary, medications and follow-up visits. ??You can alsosend a secure electronic message to your doctor???s office to request appointments, renew medications or just ask a question. You can enroll at [email or web address] or register during your next office visit. Disclaimer:?? The information provided is of a general nature and is intended to be used in conjunction with the recommendations and advice of your health care practitioner. ??Every effort has been made to ensure that the information provided is accurate and complete at the time it is provided to you however, as your needs change, or, as new ??information becomes available, different or additional instructions may be required. If you have questions, please consult with your primary care provider or pharmacist, as appropriate. ??This information is not intended to serve as substitution for assessment and evaluation by a qualified health care provider. If you do not have a primary care provider, you may find a [facility] provider by calling [facility] Link at [phone]. [facility], in keeping with [facility] guidance, no longer requires face masks for staff, patientsor visitors in most situations. Similar to time spent indoors at other locations, there is the chance that you were exposed to respiratory viruses during your time with us (such as flu or COVID-19).? If you develop symptoms concerning for a viral respiratory infection, please seek testing (and treatment if indicated) from your medical provider or home test kit. For information about the plan of care including goals and instructions for your diagnosis, please see the patient education orders section of this document. Patient Education Materials?? The content of this educational material or handout may have been modified, supplemented, or adapted from its original content and format to support your individualized medical care. Patient Care team information Care Team Personnel Name: Rea Arenas MD Position: [place] Physician - Primary Care Member Role: PCP Address: Address: [address] [place] [address] [place] [address]- Care Team Related Persons Name: JÚNIOR FIGUEROA Address: home [address] [place] [id number]
--- OUTSIDE RECORDS SUMMARY | 2023-06-08 08:50 | XMS_ITS | Continuity of Care Document ---
Author Name Unknown Organization [facility] Address [address] [place] [id number]- Encounter [facility] Date(s): 05/27/19 - 05/27/[address] [address]- [facility] Attending Physician: Asiya Gore
--- OUTSIDE RECORDS SUMMARY | 2023-06-08 08:50 | XMS_ITS | Continuity of Care Document ---
Author Name Unknown Organization [facility] Address [address] [place] [phone]- Care Team Providers Care Board Of Directors Name Role Phone Dagoberto TAYLOR, Rea Primary Care Physician Encounter [facility] Date(s): 05/04/23 - 06/03/23 [facility] [address] [place] [id number] Allergies, Adverse Reactions, Alerts No Known Allergies [...] Primary Care Member Role: PCP Address: Address: [address] [facility] Adult [place] [address]- Care Team Related Persons Name: JÚNIOR FIGUEROA Address: home [address] [place] [address]
--- NOTE | 2023-06-08 09:14 | A.OFFVISPN_ITS ---
Intake Vital Signs 06/08/23 09:23 Height 5 ft 2 in Weight 135 lb BMI 24.7 BP 106/60 Blood Pressure Location Rt brachial Position Sitting Pulse 98 Pulse Source Pulse Oximeter Pulse Oximetry (%) 100 Oxygen Delivery Method Room Air Intake Visit Reasons: FRANCISCO Allergies No Known Allergies [No Known Allergies*] Allergy (Verified 05/05/23 09:25) PFSH Surgical History History of appendectomy Family History Father Prostate cancer Mother No problems noted. Paternal Grandfather Prostate cancer Maternal Grandmother Breast cancer Alzheimer disease Diabetes HTN (hypertension) Social History Household Members: Spouse Both parents involved: Yes Caregiver staying overnight: No Housing: House Are you a primary care provider to a significant other at home: No Do you presently have visiting nurse or other home services: No 75 years or older and lives alone: No Alcohol intake: former Comment: stopped with dx of Patient Tobacco Use Status: Never used Tobacco e-Cigarette/Vaping Use: Never Used Second Hand Smoke Exposure: No Substance Use Type: Marijuana Agree to transfusion: Yes service: No Current occupational status: employed 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 Current occupational exposures/hazards: No Sexual orientation: Straight/Heterosexual Gender identity: Female Cognitive needs: No Hearing needs: No Vision needs: No Female Reproductive History Menstrual Age of Menarche: 10 History History 1 Elective abortions 0 Para 0 Spontaneous abortions 0 Hx # Term Pregnancies 0 Ectopic pregnancies 0 Hx # Pregnancies 0 Multiple births 0 Visit ALIDA Calculator Estimated Delivery Date Method Current WG Current Estimate 11/15/23 LMP (Certain) 17w 1d Other Estimates 11/12/23 Ultrasound #1 17w 4d Expected Delivery Route/Plan Specific Issues/Plans Maternal grandmother with Diabetes-- early glucose ordered OB Problem List: 28yr. old ? ? G1 ?P 0? ? ?LMP: 02/08/23 EDC:11/15/23 ?by LMP ? ? ?Blood type: pending==>O pos Problem List: 1. Testing: Panorama/and or First Tri screen: ?-> low?risk NT scan: nl AFP:06/07/23--> FAS: ordering 06/07/23 Glucose: early =99? 28 wk glucose: ? CBC 1st Tri:14.2/42.0/348 ? 28 wk. CBC: GBS: Vaccinations: Flu: Covid: actually had COVID in first trimester..... 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-?-?-?-?-?-?-?-?-?- 17w 1d 135 lb (+0 oz) 17 160 106/60 135 lb -?-?-?-?-?-?-?-?-?-?-?-?- Notes Visit Date: 06/08/23 Last Updated by: Audelia Fuentes CNM Patient is here for her visit at 17 weeks and 1 day. She is feeling well she is eating well her energy has returned she never did have any nausea she has had her 1st trimester nuchal translucency and her 1st trimester screening test which is low risk for Down's and trisomy 18. She has had her blood work done which was all within normal limits. She has not felt movement yet I am ordering her anatomy scan ultrasound and also an AFP for today. Discussed upcoming things to expect in the and considerations around getting to know the team that would be involved with her and providing information today about practices at [facility] for her to consider if she chooses to transfer care to have availability of this otherwise we will see her in 4 weeks with the ultrasound hopefully being done in about 3 weeks at [facility]. Visit Date: 05/05/23 Last Updated by: Audelia Fuentes CNM Patient is here for her new OB physical visit she had a sure LMP of 02/08/2023. She was trying to get she got on January 23. They are very very happy about the . The ultrasound at 11 weeks confirmed her ALIDA within 3 days we will stick with the LMP ALIDA. She was nauseous twice when she needed to eat and it went away she is doing very well and feels well the spotting she had at the very beginning did not last long at all. She got her blood work done this morning and she is going to do the clean- catch urine before the physical exam now. Reviewed self-care in the diet exercise work. 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 Reviewed for any emergency she would go to [facility] she has her nuchal translucency appointment at [facility] on Thursday and so she is going to check out where she would go for emergencies when she is there. Reviewed that she will be getting blood work for genetic screens after the ultrasound. She is on the portal so she can get results but we will call her for anything abnormal. Reviewed that we will not be delivering her, and if she wanted to meet the team that would be involved in her delivery transfer of care would be necessary. For now she is content to come here. Reviewed what to expect with care and upcoming testing, including AFP testing at 16-18 weeks at the next visit if she so chose. Reviewed that the anatomy scan OB at 18-20 weeks. Initial discussion/teaching about and latch initiated. She feels fine after having her 2nd bout of COVID. She did not take any antivirals. RTC 4 weeks. Visit Date: 04/30/23 Last Updated by: Gisella aMurertarik Wolf is here for nurse intake visit. She is a pleasant, 28 yo with LMP 02/08/23 ALIDA 11/17/23. US on 04/24/23 at 11w1d gives ALIDA of 11/12/23 and GA today of 12w0d. She and her are very excited about this planned . She is well supported by her and family. Pt is aware that all ultrasounds and delivery will be at [facility]. She is scheduled for NT US on 05/08/23. Maryann states that she is feeling well. She had some slight nausea earlier and some vaginal bleeding but all has resolved. She does report she has anxiety without depression and has a therapist she sees for 1 year. She takes no medications and denies any family hx of preeclampsia. She does report her maternal grandmother has diabetes. An early glucose screen has been ordered. She was Covid+ shortly after her LMP. She has been vaccinated x2 and received 1 booster. She would like a flu shot. Pt was given the folder. We discussed danger signs and that she should call the office if she has vaginal bleeding and/or pelvic pain. She was also advised there is an deputy coroner MD available 15/12 for urgent issues and she was advised how to reach the MD after office hours. In the event that she has an urgent issue and cannot reach the deputy coroner MD, she should go directly to [facility] for evaluation. We reviewed first trimester education and pt verbalized understanding and agrees with plan. labs were ordered and pt will have them done today. FHT were auscultated at 130 bpm. Pt was very happy to hear FHT as this is the first time she has heard this and she made a recording for her . Results AMB Urinalysis, Automated UA Leukoctes Amalia/uL Last Edit by Danay Baltazar CMA on 06/08/23 09:34 UA Nitrite Last Edit by Danay Baltazar CMA on 06/08/23 09:34 UA Urobilinogen mg/dL Last Edit by Danay Baltazar CMA on 06/08/23 09:34 UA Protein 3.5 mg/dL Last Edit by Danay Baltazar CMA on 06/08/23 09:34 UA pH 6.0 Last Edit by Danay Baltazar, LUKAS on 06/08/23 09:34 UA Blood Christ/uL Last Edit by Danay Baltazar, LUKAS on 06/08/23 09:34 UA Specific [place] 1.010 Last Edit by Danay Baltazar CMA on 06/08/23 09:34 UA Ketone Last Edit by Danay Baltazar, LUKAS on 06/08/23 09:34 UA Bilirubin mg/dL Last Edit by Danay Baltazar CMA on 06/08/23 09:34 UA Glucose mg/dL Last Edit by Danay Baltazar CMA on 06/08/23 09:34 Results Reviewed Results Reviewed: Laboratory Last Values Urine pH (Auto) 6.0 06/08/23 09:32 Specific [place] (Auto) 1.010 06/08/23 09:32 Urine Protein (Auto) 3.5 mg/dL 06/08/23 09:32 Coding Level of Care Code [place] Diagnoses Supervision of normal intrauterine in primigravida Z34.00 Assessment & Plan Assessment & Plan (1) Supervision of normal intrauterine in primigravida: Code(s): Z34.00 - Encounter for supervision of normal first , unspecified trimester Category: Medical Orders: Orders AMB Urinalysis Automated Today Z34.90 - Encounter for supervision of normal , unspecified, unspecified trimester AFP Quad Screen Today Z34.00 - Encounter for supervision of normal first , unspecified trimester US OB /maternal detail 3 Weeks Z34.00 - Encounter for supervision of normal first , unspecified trimester
[2023-06-08 09:23] VITALS: BP 106/60; PULSE 98; O2SAT 100; BMI 24.7
== END 2023-06-08 10:15 | disposition home or self-care (01) ==
PROVIDERS: PCP Physician Assistant; Visit Provider Advanced Practice Midwife
DX: Z34.00 Encounter for supervision of normal first pregnancy, unspecified trimester (principal)
CPT/HCPCS: 25942; 99213

== ENCOUNTER 2023-06-08 08:48 | Outpatient (REF) | payer OTHER, SELFPAY | END 2023-06-08 08:49 | disposition home or self-care (01) | LOC: HO.LAB 08:48 | PROVIDERS: Visit Provider Advanced Practice Midwife | DX: Z34.92 Encounter for supervision of normal pregnancy, unspecified, second trimester (principal); Z3A.17 17 weeks gestation of pregnancy | CPT/HCPCS: 36415; 81511; 99212 ==